=== PATIENT | male | born 1995 | race Caucasian/White ===

== ENCOUNTER 2017-10-29 04:56 | Emergency (ER) | payer SELFPAY ==
[~2017-10-29] VITALS: Ht 177.8 cm; Wt 70.0 kg
[2017-10-29 04:59] VITALS: BP 114/69; PULSE 55; RESP 20; TEMP 98; O2SAT 100
[2017-10-29 05:02] VITALS: BP 115/68; PULSE 57; RESP 20; TEMP 98; O2SAT 98
[2017-10-29] MEDS ORDERED: DEXT 5%-NACL 0.9% 1000 ML INJ 1,000 ML IV SCH (05:15)
--- NOTE | 2017-10-29 05:22 | PD ---
HPI Chief Complaint: GI Complaint Time Seen by Provider: 05:15 Travel History International Travel<30 days: No Contact w/Intl Traveler<30days: No Traveled to known affect area: No History of Present Illness HPI The patient is a 22 year old male who presents to the [facility] emergency department with a history of reportedly being out at a bar drinking until approximately midnight last night. He reports that he drank approximately 5 beers. He reports that this is not an unusual for him to drink at one time. He reports that he occasionally will drink this much, not daily. He reports that he then woke up from sound sleep with diaphoresis, tremulousness, nausea and then vomited 1. Upon ambulance services arrival the patient was noted to have a blood sugar in the 40s. The patient received 25 g of dextrose and his blood sugar came up. The patient on arrival reports that he is feeling improved. The patient reported that he had a sensation that his heart was racing and pounding out of his chest when this occurred. He denies having any chest pain. He denies having any shortness of breath. He denies using any other drugs. He reports that he does smoke cigarettes. Otherwise on review of systems he denies having any recent fevers, cough or congestion, neck pain, abdominal pain, diarrhea, urinary symptoms, or neurologic symptoms. The patient reports that he did not eat much yesterday. He only had one hot pocket. He is not sure why. PFSH Past Medical History Narrative Medical The patient's past medical history is reportedly significant for anxiety Medical History: Denies Significant Hx Diminished Hearing: No Immunizations Current: Yes Tetanus Vaccination: Unknown Influenza Vaccination: No Past Surgical History Narrative Surgical The patient's past surgical history is significant for an appendectomy, right leg surgery. Other Surgery: Yes (plastic surgery to large laceration as a child) Social History Alcohol Use: Yes (Occasional use) Tobacco Use: Yes (1 pack per day ) Substance Use: No Allergies-Medications (Allergen,Severity, Reaction): Coded Allergies: No Known Allergies (Unverified , 10/29/17) Reported Meds & Prescriptions Reported Meds & Active Scripts Active Zofran Odt (Ondansetron Odt) 4 Mg Tab 4 Mg SL Q6HR PRN Review of Systems Except as stated in HPI: all other systems reviewed are Neg General / Constitutional: No: Fever Eyes: No: Visual changes HENT: No: Headaches Cardiovascular: Positive: Palpitations, Tachycardia, Diaphoresis, No: Chest Pain or Discomfort Respiratory: No: Shortness of Breath Gastrointestinal: Positive: Nausea, Vomiting, No: Abdominal Pain Genitourinary: No: Dysuria Musculoskeletal: No: Pain Skin: No Rash Neurologic: Positive: Weakness Psychiatric: Positive: Anxiety, No: Depression Endocrine: No: Polydipsia Hematologic/Lymphatic: No: Easy Bruising Physical Exam Narrative General: The patient is a well-developed well-nourished male in no acute distress. Head and Neck exam: Head is normocephalic atraumatic. Eyes: EOMI, pupils are equal round and reactive to light. Nose: Midline septum with pink mucous membranes Mouth: Dentition unremarkable. Moist mucus membranes. Posterior oropharynx is not erythematous. No tonsillar hypertrophy. Uvula midline. Airway patent. Neck: No palpable lymphadenopathy. No nuchal rigidity. No thyromegaly. Cardiovascular: Regular rate and rhythm without murmurs, gallops, or rubs. Lungs: Clear to auscultation bilaterally. No wheezes, rhonchi, or rales. Abdomen: Soft, with midepigastric abdominal discomfort and right upper quadrant abdominal discomfort. No other tenderness on palpation of the other quadrants of the abdomen. No guarding, rebound, or rigidity. Normal bowel sounds are audible. No tenderness on palpation of McBurney's point. Negative Shay sign. Extremities: No clubbing, cyanosis, or edema. 2+ pulses in all 4 extremities. No calf tenderness on palpation. Back: No spinous process tenderness to palpation. No costovertebral angle tenderness to palpation. Neurologic Exam: Grossly nonfocal. Skin Exam: No rash noted. Intact skin that is warm and dry. Data Data Last Documented VS Vital Signs Date Time Temp Pulse Resp B/P (MAP) Pulse Ox O2 Delivery O2 Flow Rate FiO2 10/29/17 08:53 10/29/17 05:28 20 10/29/17 05:02 98.0 57 98 Room Air Orders Orders Electrocardiogram (10/29/17 05:15) Complete Blood Count With Diff (10/29/17 05:15) Comprehensive Metabolic Panel (10/29/17 05:15) Creatine Kinase (Cpk) (10/29/17 05:15) Ckmb (Isoenzyme) Profile (10/29/17 05:15) Troponin I (10/29/17 05:15) Prothrombin Time / Inr (Pt) (10/29/17 05:15) Act Partial Throm Time (Ptt) (10/29/17 05:15) Lipase (10/29/17 05:15) Magnesium (Mg) (10/29/17 05:15) Chest, Single Ap (10/29/17 05:15) Iv Access Insert/Monitor (10/29/17 05:15) Ecg Monitoring (10/29/17 05:15) Oximetry (10/29/17 05:15) Alcohol (Ethanol) (10/29/17 05:15) Dext 5%-Nacl 0.9% 1000 Ml Inj (D5w-Ns 10 (10/29/17 05:15) CKMB (10/29/17 05:20) CKMB% (10/29/17 05:20) Sodium Chlor 0.9% 1000 Ml Inj (Ns 1000 M (10/29/17 07:30) Oral Rehydration (10/29/17 07:31) Ed Discharge Order (10/29/17 08:27) Labs Laboratory Tests Test 10/29/17 05:20 White Blood Count 9.7 TH/MM3 Red Blood Count 4.33 MIL/MM3 Hemoglobin 13.3 GM/DL Hematocrit 38.8 % Mean Corpuscular Volume 89.6 FL Mean Corpuscular Hemoglobin 30.7 PG Mean Corpuscular Hemoglobin Concent 34.3 % Red Cell Distribution Width 11.7 % Platelet Count 273 TH/MM3 Mean Platelet Volume 7.9 FL Neutrophils (%) (Auto) 82.4 % Lymphocytes (%) (Auto) 13.5 % Monocytes (%) (Auto) 3.5 % Eosinophils (%) (Auto) 0.1 % Basophils (%) (Auto) 0.5 % Neutrophils # (Auto) 8.0 TH/MM3 Lymphocytes # (Auto) 1.3 TH/MM3 Monocytes # (Auto) 0.3 TH/MM3 Eosinophils # (Auto) 0.0 TH/MM3 Basophils # (Auto) 0.0 TH/MM3 CBC Comment DIFF FINAL Differential Comment Prothrombin Time 11.2 SEC Prothromb Time International Ratio 1.1 RATIO Activated Partial Thromboplast Time 27.3 SEC Blood Urea Nitrogen 15 MG/DL Creatinine 1.01 MG/DL Random Glucose 192 MG/DL Total Protein 7.1 GM/DL Albumin 4.1 GM/DL Calcium Level 8.0 MG/DL Magnesium Level 2.0 MG/DL Alkaline Phosphatase 67 U/L Aspartate Amino Transf (AST/SGOT) 113 U/L Alanine Aminotransferase (ALT/SGPT) 61 U/L Total Bilirubin 0.4 MG/DL Sodium Level 137 MEQ/L Potassium Level 3.4 MEQ/L Chloride Level 101 MEQ/L Carbon Dioxide Level 18.6 MEQ/L Anion Gap 17 MEQ/L Estimat Glomerular Filtration Rate 92 ML/MIN Total Creatine Kinase 161 U/L Creatine Kinase MB 1.2 NG/ML Troponin I LESS THAN 0.02 NG/ML Lipase 57 U/L Ethyl Alcohol Level 63 MG/DL [facility] Medical Decision Making Medical Screen Exam Complete: Yes Emergency Medical Condition: Yes Medical Record Reviewed: Yes Interpretation(s) Last Impressions Chest X-Ray 10/29/17 0515 Signed Impressions: Service Date/Time: Sunday, October 29, 2017 05:42 - CONCLUSION: The lungs are clear. Jake Padilla MD Differential Diagnosis Hepatitis, versus pancreatitis, versus alcohol-related ketoacidosis, versus starvation ketoacidosis Narrative Course During the course of the patient's emergency department visit, the patient's history, examination, and differential diagnosis were reviewed with the patient. The patient was placed on a aircraft communicator with oximetry and frequent blood pressure monitoring. The patient had IV access obtained and blood work sent for analysis. The patient was initially provided D5 normal saline at 100 mL/h. The patient then had his D5 maintenance fluids discontinued and was given instead of normal saline 1 L IV fluid bolus when he was noted to be acidotic, thought to be related to dehydration The patient's studies were reviewed and remarkable for a white count of 9.7, hemoglobin 13.3, platelets 273 with 82.4 neutrophils. CMP is remarkable for potassium of 3.4, CO2 18.6, anion gap 17, glucose 192 on a D5 normal saline maintenance rate which was discontinued and instead of normal saline IV fluid bolus was given. Magnesium 2, AST 113, cardiac enzymes within normal limits, lipase 57. PT PTT unremarkable, alcohol level 63. A chest x-ray showed no evidence of acute cardiopulmonary disease, no free air. The patient's repeat blood sugar after IV fluid bolus was 106. The patient reported feeling improved and was requesting discharge.The patient was given p.o. hydration and tolerated this well. The patient reported feeling improved. The patient will be discharged home with a prescription for Zofran. The patient is instructed to avoid alcohol and continue to hydrate with electrolyte rich solutions today. The patient is resting comfortably and feels better, is alert and in no distress. The patient's results and examination findings were discussed with the patient. The repeat examination is unremarkable and benign. The history, exam, diagnostic testing, and current condition do not suggest any significant pathology to warrant further testing, continued ED treatment, admission, or surgical evaluation at this point. The vital signs have been stable. The patient does not have uncontrollable pain, intractable vomiting, or other significant symptoms. The patient's condition is stable and appropriate for discharge. The patient will pursue further outpatient evaluation with a primary care physician or other designated or consulting physician as indicated in the discharge instructions. The patient expressed understanding and was agreeable with this plan. Diagnosis Primary Impression: Nausea & vomiting Qualified Codes: R11.2 - Nausea with vomiting, unspecified Additional Impression: Hypoglycemia Referrals: [facility] 2 days Primary Care Physician 2 days Patient Instructions: General Instructions, Non-diabetic Hypoglycemia (ED) Additional Instructions: Push fluids with electrolyte rich solution. Avoid alcohol. Eat small frequent meals throughout the day today. Med/Other Pt SpecificInfo: Prescription(s) given Scripts Ondansetron Odt (Zofran Odt) 4 Mg Tab 4 MG SL Q6HR Y for Nausea/Vomiting, #7 TAB 0 Refills Prov: Lavinia Jones MD 10/29/17 Disposition: 01 DISCHARGE HOME Condition: Stable Lavinia Jones MD Oct 29, 2017 05:22
[2017-10-29 05:28] VITALS: RESP 20
--- NOTE | 2017-10-29 05:53 | RADRPT ---
EXAM DATE/TIME: 10/29/2017 05:42 [facility] COMPARISON: No previous studies available for comparison. INDICATIONS : Short of breath, cough, vomiting. MEDICAL HISTORY : None. SURGICAL HISTORY : None. ENCOUNTER: Initial ACUITY: 1 day PAIN SCORE: 2/10 LOCATION: Bilateral chest FINDINGS: A single view of the chest demonstrates the lungs to be symmetrically aerated without evidence of mas s, infiltrate or effusion. The cardiomediastinal contours are unremarkable. Osseous structures are intact. CONCLUSION: The lungs are clear. Jake Padilla MD on October 29, 2017 at 5:51 Board Certified Radiologist. This report was verified electronically.
[2017-10-29 05:54] LABS: BASOPHIL % 0.5 % (0.0-2.0); EOSINOPHIL % 0.1 % (0.0-4.0); HEMATOCRIT 38.8 % (39.0-51.0); HEMOGLOBIN 13.3 GM/DL (13.0-17.0); LYMPH % 13.5 % (9.0-44.0); LYMPHOCYTE # 1.3 TH/MM3 (1.0-4.8); MEAN CELL VOLUME 89.6 FL (80.0-100.0); MEAN CORPUSCULAR HEMOGLOBIN 30.7 PG (27.0-34.0); MEAN CORPUSCULAR HGB CONC 34.3 % (32.0-36.0); MEAN PLATELET VOLUME 7.9 FL (7.0-11.0); MONO % 3.5 % (0.0-8.0); MONOCYTE # 0.3 TH/MM3 (0-0.9); NEUT % 82.4 % (16.0-70.0); PLATELET COUNT 273 TH/MM3 (150-450); RED BLOOD COUNT 4.33 MIL/MM3 (4.50-5.90); RED CELL DISTRIBUTION WIDTH 11.7 % (11.6-17.2); WHITE BLOOD COUNT 9.7 TH/MM3 (4.0-11.0)
[2017-10-29 06:09] LABS: INTERNATIONAL NORMALIZED RATIO 1.1 RATIO; PROTHROMBIN TIME - PATIENT 11.2 SEC (9.8-11.6)
[2017-10-29 06:29] LABS: ALBUMIN 4.1 GM/DL (3.4-5.0); ALT (GPT) 61 U/L (12-78); AST (GOT) 113 U/L (15-37); BICARBONATE 18.6 MEQ/L (21.0-32.0); BLOOD UREA NITROGEN 15 MG/DL (7-18); CHLORIDE 101 MEQ/L (98-107); CREATININE 1.01 MG/DL (0.60-1.30); GLOMERULAR FILTRATION RATE 92 ML/MIN (>89); GLUCOSE,RANDOM 192 MG/DL (74-106); SODIUM (NA) 137 MEQ/L (136-145)
[2017-10-29 06:32] LABS: ALKALINE PHOSPHATASE 67 U/L (45-117); TOTAL BILIRUBIN ADULT 0.4 MG/DL (0.2-1.0); TOTAL PROTEIN 7.1 GM/DL (6.4-8.2); TROPONIN I LESS THAN 0.02 NG/ML (0.02-0.05)
[2017-10-29] MEDS ORDERED: SODIUM CHLOR 0.9% 1000 ML INJ 1,000 ML IV ONE (07:30)
[2017-10-29] MEDS ORDERED: ZOFR4TAB3 SL (08:37)
--- NOTE | 2017-10-29 11:24 | EKG ---
Date Performed: 10/29/2017 Time Performed: 05:09:17 PTAGE: 22 years EKG: SINUS BRADYCARDIA WITH MARKED SINUS ARRHYTHMIA POSSIBLE RIGHT VENTRICULAR CONDUCTION DELAY BORDERLINE ECG NO PREVIOUS TRACING DOCTOR: Stephy Jhaveri Interpretating Date/Time 10/29/2017 11:23:07
== END 2017-10-29 08:54 | disposition home or self-care (01) ==
LOC: NEPE 04:56
DX: R11.2 Nausea with vomiting, unspecified (principal); E16.2 Hypoglycemia, unspecified; R00.1 Bradycardia, unspecified; I49.8 Other specified cardiac arrhythmias; R00.2 Palpitations; R00.0 Tachycardia, unspecified; R61 Generalized hyperhidrosis; R53.1 Weakness; F17.200 Nicotine dependence, unspecified, uncomplicated
CPT/HCPCS: 71045; 80053; 80307; 82550; 82552; 83690; 83735; 84484; 85025; 85610; 85730; 93005; 96361; 96365; 96366; 99285; J7030; J7042